=== PATIENT | male | born 1960 | race Caucasian/White ===

== ENCOUNTER 2017-08-11 11:12 | Emergency (ER) | payer OTHER ==
[~2017-08-11] VITALS: Ht 185.4 cm; Wt 99.8 kg
[~2017-08-11 11:12] MED LIST: LIORESAL 10MG T10 MG PO; MOTRIN 600 MG600 MG PO; VOLTAREN75 MG PO
[2017-08-11 11:20] VITALS: BP 140/92
--- NOTE | 2017-08-11 13:48 | ED UPPER/LOWER EXTREMITY COMPL ---
History of Present Illness General Chief Complaint: Foot or Ankle Injury Stated Complaint: RT ANKLE SPRAIN X 1MNTH/REQUESTING PAIN MEDS Source: patient, old records Exam Limitations: no limitations Vital Signs & Intake/Output Vital Signs & Intake/Output Vital Signs Date Time Temp Pulse Resp B/P B/P Pulse O2 O2 Flow FiO2 Mean Ox Delivery Rate 08/11 1120 95.5 82 18 140/92 97 Room Air Allergies Coded Allergies: NO KNOWN ALLERGIES (01/12/15) Reconcile Medications No Known Home Medications Triage Note: RIGHT KNEE PAIN INJURED A MONTH AGO AND PULLED A MUSCLE. SEEN HERE BUT STATES NO XRAY DONE. REQUESTING PAIN MEDS Triage Nurses Notes Reviewed? yes Onset: Gradual Duration: 2 months Timing: recent history Severity: moderate Severity Numbers: 7 Pain/Injury Location: Right: Leg, Knee. Method of Injury: ?old injury Modifying Factors: Improves With: immobilization. Worsens With: movement. HPI: Patient is a 57-year-old male presenting to the emergency department with chief complaint of right knee pain, right calf pain for The past 2 months. He was seen and evaluated here 2 months ago and diagnosed with a sprain. He has been using crutches which seemed to help slightly. Pain worsened over the past several days. Denies any recent travel. No history of blood clots. He does report that he is no swelling in the right leg. No numbness or tingling. Symptoms seemed to improve if he elevates the leg. Denies any known history of trauma just reports that he moved to the wrong way and then after that he felt the pain when he was seen 2 months ago. No chest pain palpitations or shortness of breath. No fevers or chills. Denies rashes. Past History Travel History Traveled to [place] past 21 day No Medical History Any Pertinent Medical History? see below for history Neurological: NONE EENT: NONE Cardiovascular: NONE Respiratory: NONE Gastrointestinal: NONE Hepatic: NONE Renal: NONE Musculoskeletal: CHRONIC BACK PAIN CHRONIC KNEE PAIN Psychiatric: NONE Endocrine: NONE Surgical History Surgical History: non-contributory Psychosocial History Who do you live with Other (see notes) Services at Home None What is your primary language Pashto Tobacco Use: Never used ETOH Use: occasional use Illicit Drug Use: denies illicit drug use Family History Hx Contributory? No Review of Systems Review of Systems Constitutional: Reports: no symptoms. Comments Review of systems: See HPI, All other systems negative. Constitutional, no chills fever or weight loss HEENT: No visual changes no sore throat no congestion Cardiovascular: No chest pain ,palpitation , orthopnea Skin, no jaundice Respiratory: No dyspnea cough sputum or hemoptysis GI: No nausea no vomiting Muscle skeletal: no back pain, no neck pain, Neurologic: No numbness no confusion, no headaches Psych: No stress anxiety or depression,. Heme/endocrine: No bruising no bleeding no polyuria or polydipsia Immunology: No splenectomy or history of AIDS Physical Exam Physical Exam General Appearance: well developed/nourished, no apparent distress, alert, awake , comfortable, obese Comments: Obese person in no acute distress HEENT: Atraumatic, normocephalic Neck: Normal inspection Cardiovascular: Pedal pulses are 2+ bilaterally. Respiratory: No respiratory distress. Extremity: Moderate edema noted extending from the right knee down the right calf. Mild tender to palpation of the right calf. Pedal pulses are 2+ bilaterally. Limited range of motion of right knee secondary to discomfort. Tender to palpation along the medial and lateral aspect of the right knee. Negative anterior and posterior drawer test of the right lower extremity, somewhat limited secondary to body habitus. Full range of motion of left lower extremities difficulty or pain. No erythema. Neuro: Alert oriented x3, motor sensory normal Skin: No appreciable rash on exposed skin, skin is warm and dry. Psych: Mood and affect is normal, memory and judgment is normal. Progress Differential Diagnosis: contusion, dislocation, DVT, sprain, tendon injury Plan of Care: Orders Procedure Date/time Status XRY-KNEE COMPLETE RIGHT 08/11 1346 Active Diagnostic Imaging: Viewed by Me: Radiology Read, CT Scan. Discussed w/RAD: Radiology Read, CT Scan. Radiology Impression: PATIENT: MIGUEL ÁNGEL ANN PRESENT AGE: 57 PATIENT ACCOUNT NO: [id number] : 60 LOCATION: [facility] ORDERING PHYSICIAN: Bibiana MCMILLAN SERVICE DATE: 08/11/17 EXAM TYPE: US - US-UNILATERAL VENOUS DOPPLER EXAMINATION: US TRIPLEX LOWER EXTREMITY, RIGHT CLINICAL INFORMATION: Right calf swelling COMPARISON: None TECHNIQUE: Color-flow triplex imaging with spectral analysis and compression Doppler were performed on the lower extremity. FINDINGS: Respiratory variation, normal compression and augmented flow are noted throughout the lower extremity. The visualized common femoral vein, superficial femoral vein, profunda femoral vein, popliteal vein and midcalf peroneal and posterior tibial venous segments show no evidence of deep venous thrombosis. There is no Gillis's cyst. IMPRESSION: Normal triplex scan without evidence of deep venous thrombosis involving the lower extremity. DICTATED BY: Master Martinez MD DATE/TIME DICTATED:08/11/171437 DRY CLEANING TEACHER:GEORGINA DATE/TIME TRANSCRIBED:08/11/171437 CONFIDENTIAL, DO NOT COPY WITHOUT APPROPRIATE AUTHORIZATION. <Electronically signed in Other Vendor System> SIGNED BY: Master Martinez MD 08/11/17 1442, PATIENT: MIGUEL ÁNGEL ANN PRESENT AGE: 57 PATIENT ACCOUNT NO: [id number] : 60 LOCATION: [facility] ORDERING PHYSICIAN: Bibiana MCMILLAN SERVICE DATE: 08/11/17 EXAM TYPE: RAD - XRY-KNEE COMPLETE RIGHT EXAMINATION: XR KNEE, RIGHT CLINICAL INFORMATION: Knee pain COMPARISON: None TECHNIQUE: Four views of the right knee. FINDINGS: Bones and soft tissues are normal. No fracture or joint effusion. Alignment is anatomic. Minimal narrowing of the medial compartment. No abnormal soft tissue calcification. IMPRESSION: Minimal medial compartment joint space narrowing, otherwise unremarkable examination of the right knee. DICTATED BY: Sepideh Pierce MD DATE/TIME DICTATED:08/11/171457 DRY CLEANING TEACHER:GEORGINA DATE/TIME TRANSCRIBED:08/11/171457 CONFIDENTIAL, DO NOT COPY WITHOUT APPROPRIATE AUTHORIZATION. <Electronically signed in Other Vendor System> SIGNED BY: Sepideh Pierce MD 08/11/17 1503 Departure Departure Disposition: HOME OR SELF CARE Condition: Stable Clinical Impression Primary Impression: Knee pain Qualifiers: Chronicity: unspecified Laterality: right Qualified Code: M25.561 - Pain in right knee Secondary Impressions: Leg pain Qualifiers: Laterality: right Qualified Code: M79.604 - Pain in right leg Referrals: Patient Has No Primary Care Dr (PCP/Family) Jarred REA,Jonel Burleson Additional Instructions: Follow-up with orthopedics if symptoms persist. Rest ice and elevate affected extremity. Wear brace for support. Continue using crutches as previously directed. You were given a prescription for a cane , you can bring to any pharmacy and they can provide that to you. Wear splint for support as needed. Departure Forms: Customer Survey General Discharge Information Prescriptions: Current Visit Scripts No Known Home Medications Procedures Splinting Location: RIGHT KNEE Manual Alignment Performed: No Pre-Made Type: knee imobilizer Splint Applied By: splint applied by other (NURSING) Pre-Proc Neuro Vasc Exam: normal Post-Proc Neuro Vasc Exam: normal Progress: Tolerated well.
--- NOTE | 2017-08-11 14:42 | ULTRASOUND REPORT ---
EXAMINATION: US TRIPLEX LOWER EXTREMITY, RIGHT CLINICAL INFORMATION: Right calf swelling COMPARISON: None TECHNIQUE: Color-flow triplex imaging with spectral analysis and compression Doppler were performed on the lower extremity. FINDINGS: Respiratory variation, normal compression and augmented flow are noted throughout the lower extremity. The visualized common femoral vein, superficial femoral vein, profunda femoral vein, popliteal vein and midcalf peroneal and posterior tibial venous segments show no evidence of deep venous thrombosis. There is no Gillis's cyst. IMPRESSION: Normal triplex scan without evidence of deep venous thrombosis involving the lower extremity.
--- NOTE | 2017-08-11 15:03 | RADIOLOGY REPORT ---
EXAMINATION: XR KNEE, RIGHT CLINICAL INFORMATION: Knee pain COMPARISON: None TECHNIQUE: Four views of the right knee. FINDINGS: Bones and soft tissues are normal. No fracture or joint effusion. Alignment is anatomic. Minimal narrowing of the medial compartment. No abnormal soft tissue calcification. IMPRESSION: Minimal medial compartment joint space narrowing, otherwise unremarkable examination of the right knee.
== END 2017-08-11 15:16 ==
LOC: ERH 11:12
DX: M25.561 Pain in right knee (principal); M79.661 Pain in right lower leg
CPT/HCPCS: 73562-RT